=== PATIENT | female | born 1995 | race Caucasian/White ===

== ENCOUNTER 2017-10-10 18:08 | Emergency (ER) | payer MEDICAID, OTHER ==
[~2017-10-10] VITALS: Ht 147.3 cm; Wt 90.0 kg
[~2017-10-10 18:08] MED LIST: CLIN75S PO; LEVO.075 PO
[2017-10-10 18:21] VITALS: BP 134/84; PULSE 108; RESP 16; TEMP 98.3; O2SAT 100
[2017-10-10 19:21] LABS: AUTOMATED NEUTROPHIL # 8.8 TH/MM3 (1.8-7.7); BASOPHIL # 0.1 TH/MM3 (0-0.2); BASOPHIL % 0.5 % (0.0-2.0); HEMATOCRIT 26.3 % (35.0-46.0); HEMOGLOBIN 8.8 GM/DL (11.6-15.3); LYMPH % 6.3 % (9.0-44.0); LYMPHOCYTE # 0.6 TH/MM3 (1.0-4.8); MEAN CELL VOLUME 74.4 FL (80.0-100.0); MEAN CORPUSCULAR HEMOGLOBIN 24.9 PG (27.0-34.0); MEAN CORPUSCULAR HGB CONC 33.5 % (32.0-36.0); MEAN PLATELET VOLUME 9.4 FL (7.0-11.0); MONO % 6.5 % (0.0-8.0); MONOCYTE # 0.7 TH/MM3 (0-0.9); NEUT % 86.7 % (16.0-70.0); PLATELET COUNT 238 TH/MM3 (150-450); RED BLOOD COUNT 3.54 MIL/MM3 (4.00-5.30); RED CELL DISTRIBUTION WIDTH 14.9 % (11.6-17.2); WHITE BLOOD COUNT 10.1 TH/MM3 (4.0-11.0)
--- NOTE | 2017-10-10 19:21 | PD ---
HPI Chief Complaint: Psychiatric Symptoms Time Seen by Provider: 18:32 Travel History International Travel<30 days: No Contact w/Intl Traveler<30days: No Traveled to known affect area: No History of Present Illness HPI 21-year-old female that presents to the ED for evaluation of Garcia act. Patient was Garcia acted because per Garcia act she did not want to get her Depakote shot apparently put a sheet on her head stating she was going to hurt herself. History is limited as patient is a very poor historian. She does have what appears to have low mentation and is really not a good historian at all. He denies any medical she denies any pain. She denies feeling. She continues to as per her mother. I was told by ED nurse that she would be with the mother to give more history. Again no further history was obtained from the patient. PFSH Past Medical History Neurologic: Yes (HYDROCEPHALUS) Thyroid Disease: Yes (HYPOTHYROID) Past Surgical History Neurologic Surgery: Yes (STORE PRODUCT DEMONSTRATOR SHUNT) Tonsillectomy: Yes (TONSILS AND ADNOIDS) Other Surgery: Yes (STORE PRODUCT DEMONSTRATOR shunt) Social History Alcohol Use: No Tobacco Use: No Substance Use: No Allergies-Medications (Allergen,Severity, Reaction): Coded Allergies: No Known Allergies (Verified Allergy, Mild, 07/09/07) Reported Meds & Prescriptions Reported Meds & Active Scripts Active Cleocin Pediatric Granule (Clindamycin Palmitate HCl) 75 Mg/5 Ml Pat 20 Ml PO Q6 10 Days Reported Synthroid (Levothyroxine Sodium) 75 Mcg Tab 75 Mcg PO DAILY Review of Systems ROS Limitations: Poor Historian Except as stated in HPI: all other systems reviewed are Neg Physical Exam Exam Limitations: Poor Historian Narrative GENERAL: SKIN: Warm and dry. HEAD: Atraumatic. Normocephalic. EYES: Pupils equal and round. No scleral icterus. No injection or drainage. ENT: No nasal bleeding or discharge. Mucous membranes pink and moist. Tongue is midline. No uvula deviation. NECK: Trachea midline. No JVD. CARDIOVASCULAR: Regular rate and rhythm. No murmurs, S3, S4. RESPIRATORY: No accessory muscle use. Clear to auscultation. Breath sounds equal bilaterally. GASTROINTESTINAL: Abdomen soft, non-tender, nondistended. Hepatic and splenic margins not palpable. MUSCULOSKELETAL: Extremities without clubbing, cyanosis, or edema. No obvious deformities. Full range of motion of the upper and lower extremities bilaterally. 2+ pulses bilaterally. NEUROLOGICAL: Awake and alert. No obvious cranial nerve deficits. Motor grossly within normal limits. Five out of 5 muscle strength in the arms and legs. Normal speech. PSYCHIATRIC: Appropriate mood and affect; insight and judgment normal. Data Data Last Documented VS Vital Signs Date Time Temp Pulse Resp B/P (MAP) Pulse Ox O2 Delivery O2 Flow Rate FiO2 10/10/17 18:21 98.3 108 16 134/84 (101) 100 Orders Orders Complete Blood Count With Diff (10/10/17 18:32) Comprehensive Metabolic Panel (10/10/17 18:32) Thyroid Stimulating Hormone (10/10/17 18:32) Psych Screen (10/10/17 18:32) Urinalysis - C+S If Indicated (10/10/17 18:58) Labs Laboratory Tests Test 10/10/17 18:45 10/10/17 19:00 [facility] Medical Decision Making Medical Screen Exam Complete: Yes Emergency Medical Condition: Yes Medical Record Reviewed: Yes Differential Diagnosis Depression versus suicidal ideation versus anxiety versus adjustment disorder versus mood disorder versus bipolar disorder versus schizophrenia versus paranoid disorder versus psychosis versus substance abuse versus alcohol abuse versus alcohol induced psychosis versus homicidality addition versus cutting versus personality disorder Narrative Course 21-year-old female who presents to the ED for evaluation Garcia act. Patient was properly examined and was found to have signs and symptoms of unclear etiology. Does appear to be psychiatric in nature. She voices no medical complaints. Labs were ordered. History is limited because of the patient's mental status. Patient was medically clear. Okay to be seen by psych. Mental health screening was discussed with the patient. Diagnosis Primary Impression: Adjustment disorder Qualified Codes: F43.20 - Adjustment disorder, unspecified Jorden Aranda Oct 10, 2017 19:21
[2017-10-10 19:47] LABS: ALBUMIN 2.9 GM/DL (3.4-5.0); ALKALINE PHOSPHATASE 103 U/L (45-117); ALT (GPT) 38 U/L (10-53); AST (GOT) 41 U/L (15-37); BICARBONATE 28.1 MEQ/L (21.0-32.0); BLOOD UREA NITROGEN 32 MG/DL (7-18); CALCIUM 8.6 MG/DL (8.5-10.1); CHLORIDE 92 MEQ/L (98-107); CREATININE 1.37 MG/DL (0.50-1.00); GLOMERULAR FILTRATION RATE 48 ML/MIN (>89); GLUCOSE,RANDOM 131 MG/DL (74-106); SODIUM (NA) 133 MEQ/L (136-145); TOTAL BILIRUBIN ADULT 1.3 MG/DL (0.2-1.0); TOTAL PROTEIN 8.3 GM/DL (6.4-8.2)
[2017-10-10 19:55] LABS: BACTERIA, URINE MANY /hpf; BILIRUBIN, URINE NEG (NEG); BLOOD, URINE NEG (NEG); GLUCOSE,URINE NEG (NEG); HYALINE CAST, URINE 5 /lpf (RARE); KETONE, URINE NEG (NEG); MUCUS URINE FEW /lpf (OCC); NITRITE,URINE POS (NEG); PH, URINE 5.5 (5.0-8.5); SQUAMOUS EPITHELIAL CELL URINE 24 /hpf (0-5); URINE COLOR YELLOW (YELLW/STRAW); URINE LEUKOCYTE ESTERASE LARGE (NEG)
[2017-10-10] MEDS ORDERED: CEPHALEXIN MONOHYDRATE SUSP 250 MG/5 ML 100 ML BTL PO ONE (20:00)
[2017-10-10] MEDS ORDERED: POTASSIUM CHLORIDE 25 MEQ EFFERVESCENT TAB PO ONE (20:00)
--- NOTE | 2017-10-10 20:04 | PD ---
Physical Exam Time Seen by Provider: 20:04 Narrative Please refer to previous providers documentation for details surrounding the patient's current visit. Data Data Last Documented VS Vital Signs Date Time Temp Pulse Resp B/P (MAP) Pulse Ox O2 Delivery O2 Flow Rate FiO2 10/10/17 18:21 98.3 108 16 134/84 (101) 100 Orders Orders Complete Blood Count With Diff (10/10/17 18:32) Comprehensive Metabolic Panel (10/10/17 18:32) Thyroid Stimulating Hormone (10/10/17 18:32) Psych Screen (10/10/17 18:32) Urinalysis - C+S If Indicated (10/10/17 18:58) Urine Culture (10/10/17 18:45) Cephalexin 250 Mg/5 Ml Liq (Keflex 250 M (10/10/17 20:00) Potassium Chloride Eff (K-Lyte Cl Eff) (10/10/17 20:00) Labs Laboratory Tests Test 10/10/17 18:45 10/10/17 19:00 Urine Color YELLOW Urine Turbidity HAZY Urine pH 5.5 Urine Specific [place] 1.021 Urine Protein 30 mg/dL Urine Glucose (UA) NEG mg/dL Urine Ketones NEG mg/dL Urine Occult Blood NEG Urine Nitrite POS Urine Bilirubin NEG Urine Urobilinogen LESS THAN 2.0 MG/DL Urine Leukocyte Esterase LARGE Urine RBC 3 /hpf Urine WBC 26 /hpf Urine Squamous Epithelial Cells 24 /hpf Urine Bacteria MANY /hpf Urine Hyaline Casts 5 /lpf Urine Mucus FEW /lpf Microscopic Urinalysis Comment CULTURE INDICATED White Blood Count 10.1 TH/MM3 Red Blood Count 3.54 MIL/MM3 Hemoglobin 8.8 GM/DL Hematocrit 26.3 % Mean Corpuscular Volume 74.4 FL Mean Corpuscular Hemoglobin 24.9 PG Mean Corpuscular Hemoglobin Concent 33.5 % Red Cell Distribution Width 14.9 % Platelet Count 238 TH/MM3 Mean Platelet Volume 9.4 FL Neutrophils (%) (Auto) 86.7 % Lymphocytes (%) (Auto) 6.3 % Monocytes (%) (Auto) 6.5 % Eosinophils (%) (Auto) 0.0 % Basophils (%) (Auto) 0.5 % Neutrophils # (Auto) 8.8 TH/MM3 Lymphocytes # (Auto) 0.6 TH/MM3 Monocytes # (Auto) 0.7 TH/MM3 Eosinophils # (Auto) 0.0 TH/MM3 Basophils # (Auto) 0.1 TH/MM3 CBC Comment DIFF FINAL Differential Comment Blood Urea Nitrogen 32 MG/DL Creatinine 1.37 MG/DL Random Glucose 131 MG/DL Total Protein 8.3 GM/DL Albumin 2.9 GM/DL Calcium Level 8.6 MG/DL Alkaline Phosphatase 103 U/L Aspartate Amino Transf (AST/SGOT) 41 U/L Alanine Aminotransferase (ALT/SGPT) 38 U/L Total Bilirubin 1.3 MG/DL Sodium Level 133 MEQ/L Potassium Level 2.9 MEQ/L Chloride Level 92 MEQ/L Carbon Dioxide Level 28.1 MEQ/L Anion Gap 13 MEQ/L Estimat Glomerular Filtration Rate 48 ML/MIN Thyroid Stimulating Hormone 3rd Gen 1.080 uIU/ML [facility] Medical Record Reviewed: Yes Supervised Visit with EMILY: No Narrative Course Patient presents to the emergency department under Garcia act from her long-term. She was initially seen by Renato Aranda PA-C. Please refer to his note. [facility] lab work pending. Laboratory Tests Test 10/10/17 18:45 10/10/17 19:00 Urine Color YELLOW Urine Turbidity HAZY Urine pH 5.5 Urine Specific [place] 1.021 Urine Protein 30 mg/dL Urine Glucose (UA) NEG mg/dL Urine Ketones NEG mg/dL Urine Occult Blood NEG Urine Nitrite POS Urine Bilirubin NEG Urine Urobilinogen LESS THAN 2.0 MG/DL Urine Leukocyte Esterase LARGE Urine RBC 3 /hpf Urine WBC 26 /hpf Urine Squamous Epithelial Cells 24 /hpf Urine Bacteria MANY /hpf Urine Hyaline Casts 5 /lpf Urine Mucus FEW /lpf Microscopic Urinalysis Comment CULTURE INDICATED White Blood Count 10.1 TH/MM3 Red Blood Count 3.54 MIL/MM3 Hemoglobin 8.8 GM/DL Hematocrit 26.3 % Mean Corpuscular Volume 74.4 FL Mean Corpuscular Hemoglobin 24.9 PG Mean Corpuscular Hemoglobin Concent 33.5 % Red Cell Distribution Width 14.9 % Platelet Count 238 TH/MM3 Mean Platelet Volume 9.4 FL Neutrophils (%) (Auto) 86.7 % Lymphocytes (%) (Auto) 6.3 % Monocytes (%) (Auto) 6.5 % Eosinophils (%) (Auto) 0.0 % Basophils (%) (Auto) 0.5 % Neutrophils # (Auto) 8.8 TH/MM3 Lymphocytes # (Auto) 0.6 TH/MM3 Monocytes # (Auto) 0.7 TH/MM3 Eosinophils # (Auto) 0.0 TH/MM3 Basophils # (Auto) 0.1 TH/MM3 CBC Comment DIFF FINAL Differential Comment Blood Urea Nitrogen 32 MG/DL Creatinine 1.37 MG/DL Random Glucose 131 MG/DL Total Protein 8.3 GM/DL Albumin 2.9 GM/DL Calcium Level 8.6 MG/DL Alkaline Phosphatase 103 U/L Aspartate Amino Transf (AST/SGOT) 41 U/L Alanine Aminotransferase (ALT/SGPT) 38 U/L Total Bilirubin 1.3 MG/DL Sodium Level 133 MEQ/L Potassium Level 2.9 MEQ/L Chloride Level 92 MEQ/L Carbon Dioxide Level 28.1 MEQ/L Anion Gap 13 MEQ/L Estimat Glomerular Filtration Rate 48 ML/MIN Thyroid Stimulating Hormone 3rd Gen 1.080 uIU/ML Patient's potassium is repleted in the emergency department. She will be started on Keflex by mouth due to UTI. I have discussed the other lab findings with the patient and her mother. Patient is medically cleared to undergo psychiatric screening for further evaluation and disposition. Diagnosis Primary Impression: Adjustment disorder Qualified Codes: F43.20 - Adjustment disorder, unspecified Additional Impression: UTI (urinary tract infection) Med/Other Pt SpecificInfo: Prescription(s) given Scripts Cephalexin Liq (Cephalexin Liq) 250 Mg/5 Ml Susp 500 MG PO BID for Infection for 7 Days, #140 ML 0 Refills Prov: Rhonda Fox 10/11/17 Condition: Stable Rhonda Fox Oct 10, 2017 20:04
[2017-10-11] MEDS ORDERED: CEPH250S PO (04:34)
[2017-10-11 06:27] VITALS: BP 123/61; PULSE 81; RESP 16; O2SAT 99
[2017-10-11] MEDS ORDERED: CEPHALEXIN MONOHYDRATE SUSP 250 MG/5 ML 100 ML BTL PO ONE (07:15)
--- NOTE | 2017-10-11 08:51 | PD ---
Physical Exam Time Seen by Provider: 08:[address] Nguyen has evaluated the patient, lifted Garcia act and cleared the patient for discharge. The mother is coming to the bedside to pickling grader the patient. Data Data Last Documented VS Vital Signs Date Time Temp Pulse Resp B/P (MAP) Pulse Ox O2 Delivery O2 Flow Rate FiO2 10/11/17 06:27 81 16 123/61 (81) 99 Room Air 10/10/17 18:21 98.3 Orders Orders Complete Blood Count With Diff (10/10/17 18:32) Comprehensive Metabolic Panel (10/10/17 18:32) Thyroid Stimulating Hormone (10/10/17 18:32) Psych Screen (10/10/17 18:32) Urinalysis - C+S If Indicated (10/10/17 18:58) Urine Culture (10/10/17 18:45) Cephalexin 250 Mg/5 Ml Liq (Keflex 250 M (10/10/17 20:00) Potassium Chloride Eff (K-Lyte Cl Eff) (10/10/17 20:00) Diet Regular Basic (10/11/17 Breakfast) Cephalexin 250 Mg/5 Ml Liq (Keflex 250 M (10/11/17 07:15) Labs Laboratory Tests Test 10/10/17 18:45 10/10/17 19:00 Urine Color YELLOW Urine Turbidity HAZY Urine pH 5.5 Urine Specific [place] 1.021 Urine Protein 30 mg/dL Urine Glucose (UA) NEG mg/dL Urine Ketones NEG mg/dL Urine Occult Blood NEG Urine Nitrite POS Urine Bilirubin NEG Urine Urobilinogen LESS THAN 2.0 MG/DL Urine Leukocyte Esterase LARGE Urine RBC 3 /hpf Urine WBC 26 /hpf Urine Squamous Epithelial Cells 24 /hpf Urine Bacteria MANY /hpf Urine Hyaline Casts 5 /lpf Urine Mucus FEW /lpf Microscopic Urinalysis Comment CULTURE INDICATED White Blood Count 10.1 TH/MM3 Red Blood Count 3.54 MIL/MM3 Hemoglobin 8.8 GM/DL Hematocrit 26.3 % Mean Corpuscular Volume 74.4 FL Mean Corpuscular Hemoglobin 24.9 PG Mean Corpuscular Hemoglobin Concent 33.5 % Red Cell Distribution Width 14.9 % Platelet Count 238 TH/MM3 Mean Platelet Volume 9.4 FL Neutrophils (%) (Auto) 86.7 % Lymphocytes (%) (Auto) 6.3 % Monocytes (%) (Auto) 6.5 % Eosinophils (%) (Auto) 0.0 % Basophils (%) (Auto) 0.5 % Neutrophils # (Auto) 8.8 TH/MM3 Lymphocytes # (Auto) 0.6 TH/MM3 Monocytes # (Auto) 0.7 TH/MM3 Eosinophils # (Auto) 0.0 TH/MM3 Basophils # (Auto) 0.1 TH/MM3 CBC Comment DIFF FINAL Differential Comment Blood Urea Nitrogen 32 MG/DL Creatinine 1.37 MG/DL Random Glucose 131 MG/DL Total Protein 8.3 GM/DL Albumin 2.9 GM/DL Calcium Level 8.6 MG/DL Alkaline Phosphatase 103 U/L Aspartate Amino Transf (AST/SGOT) 41 U/L Alanine Aminotransferase (ALT/SGPT) 38 U/L Total Bilirubin 1.3 MG/DL Sodium Level 133 MEQ/L Potassium Level 2.9 MEQ/L Chloride Level 92 MEQ/L Carbon Dioxide Level 28.1 MEQ/L Anion Gap 13 MEQ/L Estimat Glomerular Filtration Rate 48 ML/MIN Thyroid Stimulating Hormone 3rd Gen 1.080 uIU/ML MDM Supervised Visit with EMILY: No Narrative Course Dr. Nguyen has evaluated the patient, lifted Jose bowser and cleared the patient for discharge. The mother is coming to the bedside to pickling grader the patient. Patient contracts safety. Denies suicidal or homicidal ideations. Patient will be provided community resource packet [facility]. Has friends and family for support. Patient was medically cleared by alternate provider prior to psych screening. Patient has been evaluated by psychiatry and and is now cleared for discharge. Diagnosis Primary Impression: Adjustment disorder Qualified Codes: F43.20 - Adjustment disorder, unspecified Additional Impression: UTI (urinary tract infection) Qualified Codes: N39.0 - Urinary tract infection, site not specified Referrals: AJ (Out patient) [facility] Primary Care Physician Psychiatrist Genia [facility] Patient Instructions: General Instructions, Mood Disorders (ED), Urinary Tract Infection in Women (ED) Additional Instruction: Take antibiotics as prescribed and complete full course Drink plenty of fluids Maintain good personal hygiene Follow-up with primary care provider Return to the emergency department immediately with worsening of symptoms Contract safety to your self and others Follow-up with psychiatry Follow-up with primary care provider Follow-up with Martin Interiano Return to the emergency department immediately with worsening of symptoms Med/Other Pt SpecificInfo: Prescription(s) given Scripts Cephalexin Liq (Cephalexin Liq) 250 Mg/5 Ml Susp 500 MG PO BID for Infection for 7 Days, #140 ML 0 Refills Prov: Rhonda Fox 10/11/17 Disposition: 01 DISCHARGE HOME Condition: Stable Anitha Gill Oct 11, 2017 08:51
--- NOTE | 2017-10-11 09:14 | MB ---
cc: Kash Stephen MD DATE: 10/10/2017 PHYSICIAN REQUESTING CONSULTATION: Emergency department. REASON FOR CONSULTATION: Garcia Act. HISTORY OF PRESENT ILLNESS: Ms. Mendes is a 21-year-old female with a history of intellectual disability, reportedly associated with hydrocephalus, who presents under a Garcia Act by law enforcement alleging that the patient "became upset because she did not want to receive her Depo-Provera shot. Andreea put a canvas bag over her head and was holding the straps tightly around her neck." Reviewing the electronic medical record, I see no previous psychiatric contact within our system. The patient seen and examined. Chart reviewed. Case discussed with staff in the ED. There has been no evidence of behavioral disturbance since the patient has been under observation in the ED. On my examination this morning, the patient presents as quite childlike. Intellectual disability is suspected. She denies any suicidal or homicidal ideation presently. She does not report any symptoms of depression or hypomania/geremias and her affect is quite bright and euthymic. She denies any audiovisual hallucinations. I can elicit no delusional beliefs. She provides no explanation for her behavior alleged in the Garcia Act. The remainder of the psychiatric ROS is negative. No acute physical complaints. I placed a call to the patient's mother, Naheed Mendes, for collateral information. Mother requests that the patient be discharged from the ED this morning. She tells me, "She is not crazy, she is just marroquin." The mother doubts that the patient was in fact trying to injure herself and says that the patient simply had a bag near her from some activity that she was pursuing and when the staff asked her if she was trying to injure herself, she answered in the affirmative because she is easily led in this regard. Mother has no concerns with the patient being discharged from the ED this morning. She knows of notes of no previous history of suicide attempts. I am unable to obtain any meaningful past psychiatric, family, chemical dependency or social history from the patient because of her intellectual limitations. PAST MEDICAL HISTORY: See electronic medical record. MEDICATIONS: Includes Keflex. ALLERGIES: NO KNOWN ALLERGIES. REVIEW OF SYSTEMS: Except as noted in the HPI, this is negative. PHYSICAL EXAMINATION: VITAL SIGNS: Temperature is 98.3, pulse 81, respirations 16, blood pressure 123/61, pulse oximetry 99% on room air. GENERAL: Physical examination was completed by the ED provider. On my examination today, the patient appears to be in no acute physical distress. No motor abnormalities noted. LABORATORY DATA: Reviewed: CBC reveals microcytic anemia with a hemoglobin of 8.8. CMP reveals hypokalemia with a potassium of 2.9, sodium of 133, GFR of 48. TSH is within normal limits. Urinalysis is concerning for a UTI, but urine culture is pending. MENTAL STATUS EXAMINATION: The patient is in hospital attire. She is fairly well groomed and maintaining basic hygiene. She is awake and alert and oriented to person and hospital at least. No motor abnormalities noted. Speech is within normal limits for rate, tone, and volume. Language and fund of knowledge are reduced. Memory is fairly intact on clinical exam. Focus and concentration are somewhat scattered. Mood is fair and affect is euthymic, full and reactive. Thought process is somewhat childlike. Thought process fairly linear. No loosening of associations. No delusional material elicited. Denies audiovisual hallucinations. Denies any suicidal or homicidal ideation, intent or plan. Insight and judgment are chronically poor. ASSESSMENT AND PLAN: Intellectual disability, F79. This is a 21-year-old female with psychiatric history as detailed above who presents under a Garcia Act by law enforcement. On my examination today, the patient denies any suicidal or homicidal ideation. There is no evidence of unstable mental illness as defined under the Garcia Act. The patient does have some intellectual disability issues, but of course this is not covered by the Garcia Act definition of mental illness. I have obtained reassuring collateral from the patient's mother. There is no evidence of severe self-care deficits such as would limit her ability to be discharged to the previous level of care. Synthesizing this information, I director of market analysis the patient does not meet the Garcia Act criteria. I have lifted the Garcia Act. In accordance with the mother's wishes, the patient will be discharged into her care today. I have counseled the mother to return the patient to the psychiatric emergency room for any concerning psychiatric symptoms as part of a general safety plan. She is also to follow up with her outpatient providers. Patient is otherwise psychiatrically cleared for discharge from the ED. Thank you very much for this consultation. MD CLEM Muro/MILAGROS , 08:52 AM , 09:13 AM MTDMargarette
[2017-10-11 09:45] VITALS: BP 136/81; PULSE 85; RESP 19; O2SAT 97
== END 2017-10-11 10:24 | disposition home or self-care (01) ==
LOC: NEPD 18:08
DX: F43.20 Adjustment disorder, unspecified (principal); N39.0 Urinary tract infection, site not specified; B96.20 Unspecified Escherichia coli [E. coli] as the cause of diseases classified elsewhere; D50.9 Iron deficiency anemia, unspecified; E87.6 Hypokalemia; F79 Unspecified intellectual disabilities; E03.9 Hypothyroidism, unspecified
CPT/HCPCS: 80053; 81001; 84443; 85025; 87077; 87086; 87186; 99283